=== PATIENT | female | born 2005 ===

== ENCOUNTER 2025-04-28 11:18 | Emergency (ER) | payer OTHER, SELFPAY ==
--- NOTE | ~2025-04-28 | XR_ITS ---
EXAMINATION: XR hand LT min 3V, 04/28/2025 11:50 CDT HISTORY: fall, pain to base of 4th and 5th digit COMPARISON: No comparisons available. Findings: No acute fracture or malalignment. No significant degenerative changes. Soft tissues unremarkable. Impression: No acute fracture or malalignment. Reviewed, dictated and finalized at location A. Impression: No acute fracture or malalignment.
[2025-04-28 11:39] VITALS: BP 117/77; PULSE 88; RESP 14; TEMP 36.5; O2SAT 100
--- NOTE | 2025-04-28 11:50 | ED_ITS ---
HPI - Extremity Injury (Upper) General Chief Complaint: Extremity Injury, Upper Stated Complaint: L Hand Pain Time Seen by Provider: 04/28/25 11:50 Source: patient, RN notes reviewed and old records reviewed Mode of arrival: ambulatory Limitations: no limitations History of Present Illness HPI narrative: 20-year-old female who [facility] with complaints of falling last night onto her left side and caught self with left hand with pain to base of 4th and 5th fingers and to palm of her left hand since fall. Patient reports that she has taken Advil and also applied ice to her hand for her discomfort. Patient is able tomove all fingers of left hand on own power with no obvious deformity, strong left radial pule. MD complaint: injury to: left and hand Onset (ago): day(s) (last night) Place: outdoors Severity scale (1-10): 7 Treatments prior to arrival: cold therapy and NSAIDS Related Data Home Medications ?Medication ?Instructions ?Recorded ?Confirmed ?Last Taken ?Type No Home Medications 04/28/25 04/28/25 U nknown History Allergies Allergy/AdvReac Type Severity Reaction Status Date / Time sulfamethoxazole (From Allergy Intermediate Rash Verified 04/28/25 11:45 Bactrim) trimethoprim (From Bactrim) Allergy Intermediate Rash Verified 04/28/25 11:45 Review of Systems Review of Systems: CONSTITUTIONAL: Denies fever, chills, or sweats. EYES: Denies visual changes, redness, or discharge. ENT: Denies rhinorrhea, congestion, sore throat, or otalgia. CARDIOVASCULAR: Denies chest pain, palpitations, or edema. RESPIRATORY: Denies cough or dyspnea. GASTROINTESTINAL: Denies abdominal pain, nausea, vomiting, or diarrhea. GENITOURINARY: Denies dysuria or hematuria. SKIN: Denies rash or itching. MUSCULOSKELETAL: Denies back pain, joint pain, or myalgia.positive for pain to the left palm of hand and to the base of her 4th and 5th fingers after fall last night. NEUROLOGIC: Denies headache, numbness, or weakness. PSYCHIATRIC: Denies anxiety or depression. All systems reviewed & are unremarkable except as noted in HPI and below PMFSH Social History Social History (Updated 04/29/25 @ 19:38 by Giana Mattson NP) Smoking status: Never smoker Alcohol intake: current Alcohol use details: social Substance use type: does not use Gender identity (if verbalized by the patient): Female Comments At time of signature, agree with nursing past medical, surgical, social and family history. There is no relevant family history pertinent to the presenting complaint Exam Narrative: GENERAL: Well-appearing, well-nourished, and in no acute distress. HEAD: Normocephalic, atraumatic. EYES: PERRLA and EOMI. ENT: Nares clear, no rhinorrhea or epistaxis. Mucous membranes moist. NECK: Supple.no lymphadenopathy CHEST: Clear to auscultation. No respiratory distress.SAO2 100% on room air HEART: Regular rate and rhythm. No murmur heard. Normal peripheral pulses. ABDOMEN: Soft, nontender, nondistended, normal active bowel sounds. EXTREMITIES: Normal range of motion. No acute edema. Reports pain to her left hand at 4th and 5th fingers at base and pain to palm of left hand after fall last evening, no obvious deformity, ableto move all fingers of left hand on own power, strong left radial pulse SKIN: Warm, dry, no rash. NEURO: No focal deficits. Alert and oriented x3. Course Course Emergency Course: Patient is aware of diagnosis, understands and agrees to treatment plan.? Anticipatory guidance given.? Patient agrees to follow-up as directed and is aware of reasons to seek care at the emergency department. Portions of this record may have been created with voice recognition software Level of Care: Express Care Visit Vital Signs Vital signs: Vital Signs Temperature 36.5 C 04/28/25 11:39 Pulse Rate 88 04/28/25 11:39 Respiratory Rate 14 04/28/25 11:39 Blood Pressure 117/77 04/28/25 11:39 Pulse Oximetry 100 04/28/25 11:39 Oxygen Delivery Room Air 04/28/25 11:39 Temperature 36.5 C 04/28/25 11:39 Pulse Rate 88 04/28/25 11:39 Respiratory Rate 14 04/28/25 11:39 Blood Pressure 117/77 04/28/25 11:39 Pulse Oximetry 100 04/28/25 11:39 Oxygen Delivery Room Air 04/28/25 11:39 Reviewed MDM - Extremity Injury (Upper) Differential Diagnosis Differential diagnosis: Likely fracture of hand and other (finger fracture, contusion of left hand) Medical Records Attestation: I reviewed the patient's medical records. Imaging Data Attestation: I personally reviewed and interpreted this imaging study as follows: My impression: no fracture noted Radiologist's impression: [facility] [address] [place] [address] XRay Report Signed Patient: Filippo Diez : 2005 MR#: [id number] Age: 20 Acct:[id number] Loc: [id number] ADM Date: 04/28/25Attending Dr: Ordering Physician: Giana Mattson APRN Date of Service: 04/28/25 Procedure(s): XR hand LT min 3V Accession Number(s): [id number] cc: HEAVY EQUIPMENT OPERATOR APPRENTICE PHYSICIAN; Giana Mattson APRN~ EXAMINATION: XR hand LT min 3V, 04/28/2025 11:50 CDT HISTORY: fall, pain to base of 4th and 5th digit COMPARISON: No comparisons available. Findings: No acute fracture or malalignment. No significant degenerative changes. Soft tissues unremarkable. Impression: No acute fracture or malalignment. Reviewed, dictated and finalized at location A. Please be advised this is a medical document. It is intended for [id number] communication. It is written in medical language and may contain unfamiliar abbreviations or verbiage. Medical documents are intended to carry relevant information, facts as evident, and the clinical opinion of the practitioner at the time of the encounter. This report may have been done utilizing a voice recognition system. Attempts have been made to correct errors. However, there may be uncorrected grammatical, spelling, and recognition errors present. The file time of this note does not necessarily represent the time of service. Dictated By: John Gomez MD 04/28/25 1235 Signed By: <Electronically signed by John Gomez MD in OV> Critical Care Time Critical Care Time Critical Care Time: No Discharge Plan Discharge Clinical Impression: Contusion of hand, left Qualifiers: Encounter type: initial encounter Qualified Code(s): S60.222A - Contusion of left hand, initial encounter Patient Disposition: Home Condition: Stable Instructions: Antibiotic Form, Contusion in Adults (ED) Additional Instructions: Elastic wrap or orthopedic splint as directed for comfort for the next 5-7 days Tylenol for lesser pain Ibuprofen regularly for the next 2-3 days for the inflammation Follow-up with orthopedic surgeon if further concern Follow-up with PCP if further problems or concerns Ice to the area 20-30 minutes 4-6 times a day Elevate above heart If your symptoms persist, change or worsen significantly before you can contact your personal physician then please, without delay, go to the emergency department for further evaluation. Follow-up with PCP in 7-10 days or sooner if needed Patient Language: Slovenian Prescriptions: No Action No Home Medications Follow-up/Referrals: PHYSICIAN,HEAVY EQUIPMENT OPERATOR APPRENTICE [Primary Care Provider, Internal Medicine] Time of Disposition: 12:46 Quality [place] Coma Scale Eyes: Open Verbal: Oriented and Alert Motor: Follows Commands [place] Coma Total Score: 15
== END 2025-04-28 12:54 | disposition home or self-care (01) ==
PROVIDERS: Emergency Provider Registered Nurse
DX: S60.222A Contusion of left hand, initial encounter (principal); W19.XXXA Unspecified fall, initial encounter
CPT/HCPCS: 73130; 99203; G0463